=== PATIENT | male | born 1955 | race Caucasian/White ===

== ENCOUNTER 2017-09-16 10:54 | Emergency (ER) | payer MEDICAID, OTHER ==
[~2017-09-16] VITALS: Ht 175.3 cm; Wt 86.2 kg
--- NOTE | 2017-09-16 10:54 | NUR ---
pt called, not in waiting room
[2017-09-16 11:10] VITALS: BP 109/64
== END 2017-09-16 11:44 | disposition home or self-care (01) ==
LOC: ER 10:57
DX: M25.512 Pain in left shoulder (principal); Z76.0 Encounter for issue of repeat prescription; J44.9 Chronic obstructive pulmonary disease, unspecified; F17.200 Nicotine dependence, unspecified, uncomplicated; I10 Essential (primary) hypertension
CPT/HCPCS: A4606; Z7610